=== PATIENT | male | born 1965 | race Caucasian/White ===

== ENCOUNTER 2019-06-03 08:18 | Day surgery (SDC) | payer OTHER, SELFPAY ==
[2019-06-03] VITALS (9 sets, daily range): BP systolic 105–193; BP diastolic 57–98; PULSE 57–93; RESP 10–18; TEMP 36.1–37.4; O2SAT 95–100; BMI 24.2
[2019-06-03] MEDS: SODIUM CHLORIDE 0.9% 1,000 ML 200 ML IV (08:42)
--- NOTE | 2019-06-03 09:09 | PM.HP.1 ---
History of Present Illness History of Present Illness Date Patient Seen: 06/03/19 Time Patient Seen: 09:17 Chief complaint: [id number] Narrative: Patient presents for colorectal screening. They have never had any previous examination for such. No personal or family history of colon cancer. On further history denies any recent gastrointestinal symptoms. No nausea, vomiting, abdominal pain, loss of appetite, unexplained weight loss, change in bowel habits, diarrhea, constipation, melena, hematochezia, or bright red blood per rectum. Patient History Medical History (Updated 06/03/19 @ 09:18 by Darren Townsend MD) Hypertension (Acute) Sleep apnea (Acute) Family & Social History Social History: household members spouse Meds Home Medications and Allergies Home Medications Medication Instructions Recorded Confirmed Type gabapentin 100 mg PO BEDTIME PRN 06/03/19 06/03/19 History ibuprofen 800 mg PO Q6H PRN 06/03/19 06/03/19 History lisinopril-hydrochlorothiazide 1 tab PO DAILY 06/03/19 06/03/19 History [Zestoretic] Allergies Allergy/AdvReac Type Severity Reaction Status Date / Time No Known Drug Allergies Allergy Verified 06/03/19 08:30 Review of Systems Review of Systems Narrative: A complete review of systems is negative except as noted in the HPI Exam Vital Signs (past 8 hours): - 06/03/19 08:34 Temperature 97.0 F L Pulse Rate 89 Respiratory Rate 18 Blood Pressure 193/98 H Pulse Oximetry 100 Oxygen Delivery Method Room Air Narrative Exam Narrative: General-no acute distress, well nourished HEENT-moist mucous membranes, no scleral icterus Neck-supple, no lymphadenopathy Chest- non labored respirations, clear to auscultation bilaterally Cardiac-regular rate no peripheral edema Abdomen-soft, nontender, non distended Extremities-warm, well perfused Neurological-alert and oriented, no focal deficits Assessment & Plan Assessment and plan (1) Screening for colon cancer: Current visit: Yes Status: Acute Assessment & Plan narrative: The patient requires colorectal screening and colonoscopy is recommended. Technical details were discussed. Risks, benefits, alternatives explained. Risks including but not limited to myocardial infarction, aspiration, bleeding, pain, missed lesion, incomplete examination, need for further radiographic studies, colonic perforation, and need for major abdominal surgery were discussed. All questions were answered to their satisfaction, and they are in agreement with this plan.
[2019-06-03] MEDS: MIDAZOLAM 5 MG/5 ML VIAL IV (09:14)
[2019-06-03] MEDS: fentaNYL 250 MCG/5 ML INJ IV (09:14)
--- NOTE | 2019-06-03 09:49 | PM.OP.ENDO ---
Operative Date/Time/Diagnoses Date of procedure: 06/03/19 Time of procedure: 09:49 Pre-op diagnosis: Screening colonoscopy Post-op diagnosis: same Procedure & Clinicians Study performed: Colonoscopy Same procedure as scheduled: Yes Indications: 54-year-old male no prior colonoscopy presents for routine screening. Surgeon: Darren Townsend Procedure Notes SCOAP/Timeout: Performed Procedure in detail: Patient placed in left lateral decubitus position. Time out was performed. Procedural sedation was administered with Versed and Fentanyl. A rectal exam demonstrated no external hemorrhoids no internal masses. Colonoscopy scope was placed into the rectum and advanced through the colon to the cecum. The ileocecal valve was identified. The scope was then slowly withdrawn examining colon thoroughly in all directions. The colonoscopy was notable for the following 1. Sigmoid diverticulosis 2. No masses or polyps 3. Quality of prep excellent Scope withdrawal time: 8 Sedation minutes: 27 Findings: diverticulosis Specimen(s): none sent Complications: none Impression: Diverticulosis Post-procedure Recommendations: Colonscopy in 10 years and High fiber diet Disposition: same day surgery
== END 2019-06-03 10:51 | disposition home or self-care (01) ==
PROVIDERS: PCP General Practice; Visit Provider Surgery
PROC: 0DJD8ZZ Inspection of Lower Intestinal Tract, Via Natural or Artificial Opening Endoscopic (ICD-10-PCS; CPT 45378; principal; 2019-06-03 09:30)
DX: Z12.11 Encounter for screening for malignant neoplasm of colon (principal); I10 Essential (primary) hypertension; G47.30 Sleep apnea, unspecified; K57.30 Diverticulosis of large intestine without perforation or abscess without bleeding
CPT/HCPCS: 45378; 99152; J2250; J3010

== ENCOUNTER → 2020-10-01 15:54 | Outpatient (CLI) | payer OTHER, SELFPAY ==
--- NOTE | 2020-10-01 | DI.MRI.S_ITS ---
PROCEDURE: MR LUMBAR SPINE WO CON INDICATIONS: LOW BACK PAIN TECHNIQUE: Noncontrast sagittal T1 spin echo and T2 fast echo, sagittal STIR, axial T1 and T2 fast spin echo through the lumbar spine. In cases with scoliosis, additional coronal T2 fast spin echo may be performed. COMPARISON: [facility], CR, XR LUMBAR SPINE 2 OR 3 VIEWS, 09/16/2020, 16:32. FINDINGS: Image quality: Excellent. Alignment and Curvature: There is mild L4-L5 anterolisthesis secondary to facet hypertrophy. Bones: There is transitional lumbosacral vertebral anatomy with sacralization of the L5 vertebral body. Reactive endplate changes noted adjacent to the L2-L3, L3-L4 and L4-L5 discs. No acute vertebral body compression fractures. Spinal Cord: Conus medullaris terminates at the L1 level. Visualized cord demonstrates normal signal and size. Paraspinous Soft Tissues: No paravertebral masses. T12-L1: Loss of disc signal. Mild, diffuse disc bulge. No central stenosis. No neural foraminal narrowing. No neural compression. L1-L2: Loss of disc signal. Mild, diffuse disc bulge. Mild narrowing of the central canal. Mild bilateral neural foraminal narrowing. No neural compression. L2-L3: Loss of disc signal. Mild to moderate diffuse disc bulge. Tiyr-ax-vwyngxpp bilateral facet hypertrophy. Mild ligamentum flavum hypertrophy. Moderate narrowing of the central canal. Moderate bilateral neural foraminal narrowing. No neural compression. L3-L4: Loss of disc signal and height. Mild, diffuse disc bulge. Moderate bilateral facet hypertrophy. Moderate narrowing of the central canal. Moderate bilateral neural foraminal narrowing. No neural compression. L4-L5: Loss of disc signal and height. Moderate, diffuse disc bulge. Severe bilateral facet hypertrophy. Severe narrowing of the central canal with compression of the nerve roots of the cauda equina. Mild right and severe left neural foraminal narrowing with compression of the exiting left L4 nerve root. L5-S1: Normal appearance. IMPRESSION: 1. 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 2. Multilevel degenerative disc disease. 3. Multilevel facet arthropathy. 4. Grade 1 L4-L5 degenerative spondylolisthesis. 5. Severe L4-L5 central canal narrowing with compression of the traversing nerve roots of the cauda equina. 6. Severe left L4-L5 neural foraminal narrowing with compression of the exiting left L4 nerve root. Dictated by: Betsy Castellon MD, PhD on 10/02/2020 at 10:18 Approved by: Betsy Castellon MD, PhD on 10/02/2020 at 11:04
== END ==
PROVIDERS: PCP General Practice; Referring Provider Orthopaedic Surgery Orthopaedic Surgery of the Spine; Visit Provider Orthopaedic Surgery Orthopaedic Surgery of the Spine
DX: M54.5 Low back pain (principal); M43.16 Spondylolisthesis, lumbar region; M51.36 Other intervertebral disc degeneration, lumbar region; M47.816 Spondylosis without myelopathy or radiculopathy, lumbar region; M48.061 Spinal stenosis, lumbar region without neurogenic claudication
CPT/HCPCS: 72148

== ENCOUNTER → 2020-10-21 13:37 | Outpatient (CLI) | payer OTHER, SELFPAY ==
[2020-10-21 14:03] LABS: Add Manual Diff / Slide Review NO; Basophils Absolute Auto 100 /uL (0-100); Eosinophils Absolute Auto 200 /uL (0-450); Eosinophils Percent Auto 2.2 % (2-4); Hematocrit 44.4 % (41-53); Hemoglobin 14.9 g/dL (13.5-17.5); Lymphocytes Absolute Auto 3700 /uL (1100-4500); Lymphocytes Percent Auto 37.1 % (25-40); Mean Corpuscular HGB Conc 33.6 % (30-36); Mean Corpuscular Hemoglobin 28.6 PG (26-34); Mean Corpuscular Volume 85.2 fL (80-100); Monocytes Absolute Auto 700 /uL (0-900); Monocytes Percent Auto 7.3 % (3-14); Neutrophils Absolute Auto 5200 /uL (1500-7000); Neutrophils Percent Auto 52.4 % (50-75); Platelet Count 275 X10^3/uL (150-400); Red Blood Cell Count 5.21 X10^6/uL (4.5-5.9); Red Cell Distribution Width 13.7 % (11.6-14.8)
[2020-10-21 14:18] LABS: BUN Creatinine Ratio 22.2 (6-22); Blood Urea Nitrogen 18 mg/dL (9-20); Calcium 10.2 mg/dL (8.4-10.2); Carbon Dioxide 31 mmol/L (22-32); Chloride 98 mmol/L (98-107); Estimated Glomerular Filt Rate > 60.0 mL/min (>60); Glucose 157 mg/dL (70-100); HEMOLYSIS < 15 (0-50); Potassium 4.2 mmol/L (3.4-5.1); Sodium 137 mmol/L (137-145)
== END ==
PROVIDERS: PCP General Practice; Referring Provider Orthopaedic Surgery Orthopaedic Surgery of the Spine; Visit Provider Orthopaedic Surgery Orthopaedic Surgery of the Spine
DX: Z01.818 Encounter for other preprocedural examination (principal); Z01.812 Encounter for preprocedural laboratory examination
CPT/HCPCS: 36415; 80048; 85025; 93005

== ENCOUNTER → 2020-11-09 09:44 | Outpatient (CLI) | payer OTHER, SELFPAY ==
[2020-11-09 11:05] LABS: COVID19 -Nasal RAPID Negative (Negative)
== END ==
PROVIDERS: PCP General Practice; Visit Provider Student in an Organized Health Care Education/Training Program
DX: Z01.812 Encounter for preprocedural laboratory examination (principal); Z20.822 Contact with and (suspected) exposure to COVID-19
CPT/HCPCS: 87635

== ENCOUNTER 2020-11-12 16:00 | Observation (INO) | payer OTHER, SELFPAY ==
[2020-11-04 13:03] VITALS: BMI 29.2
[2020-11-11] VITALS (21 sets, daily range): BP systolic 110–183; BP diastolic 57–92; PULSE 75–117; RESP 11–19; TEMP 36.6–37.8; O2SAT 93–98; BMI 29.2
--- NOTE | 2020-11-11 | DI.RAD.S_ITS ---
PROCEDURE: XR LUMBAR SPINE 2-3V INDICATIONS: L4-5 TLIF TECHNIQUE: 2 views of the lumbar spine were acquired. COMPARISON: [facility], MR, MR LUMBAR SPINE WO CON, 10/01/2020, 16:39. [facility], CR, L-SPINE 2-3 VIEWS, 01/18/2008, 8:34. FINDINGS: Spot fluoroscopic intraoperative images demonstrating lumbar spinal fixation hardware at L4-L5 with interbody cage graft. IMPRESSION: Expected alignment Dictated by: Ken Hernandez M.D. on 11/12/2020 at 9:25 Approved by: Ken Hernandez M.D. on 11/12/2020 at 9:28
[2020-11-11] MEDS: LACTATED RINGERS 1,000 ML 42 ML IV ×2 (12:57→16:06)
--- NOTE | 2020-11-11 13:45 | PM.PREOP ---
Pre-operative Note COVID-19 COVID-19 status: Negative Result date/Date tested (Pos, Neg/Pending): 11/09/20 Interval Note History & Physical reviewed/Exam performed by Physician: Yes Changes to H&P: No
[2020-11-11] MEDS: CEFAZOLIN 1 GM VIAL 2 GM IV ×2 (14:30→22:27)
--- NOTE | 2020-11-11 14:50 | SUR.OPER ---
Prone on spine table, head in foam head support, padded chest and pelvic supports, gel pad at knees, lower legs supported by pillows; nipples, genitalia and toes free of pressure, arms secured on foam padded arm boards at <90 degrees abduction. Tape over blanket at thigh secured to table.
[2020-11-11] MEDS: BUPIVACAINE 0.5% W/ EPI (PF) 30 ML VIAL INJ (15:01)
[2020-11-11] MEDS: BUPIVACAINE LIPOSOME 266 MG/20 ML VIAL INJ (15:01)
--- NOTE | 2020-11-11 17:37 | P.OP_ITS ---
Operative Date/Time/Diagnoses Date of procedure: 11/11/20 Time of procedure: 14:38 Pre-op diagnosis: 1. L4-5 spondylolisthesis 2. L4-5 spinal stenosis with neurogenic claudication Post-op diagnosis: same Procedure & Clinicians Procedure: 1. L4-5 Postero-lateral and posterior interbody fusion 2. L4-5 interbody cage placement. 3. L4-5 decompressive laminectomy with bilateral facetecomies 4. L4-5 Posterior non-segmental instrumentation 5. [place] of bone marrow from iliac crest 6. Utilization of microsurgical technique and operating microscope Same procedure as scheduled: Yes Indications: Patient has been having chronic back pain and worsening lumbar radiculopathy. Patient failed multiple conservative management with worsening pain weakness and numbness in her lower extremity. Patient has been having difficulty performing activity of daily living. After discussing risks benefits of treatment options, patient elected proceed with surgery. Surgeon: Genia Mahmood Mail Agent: Gavin Maguire Click Yes if Unassisted: No Anesthesia Type: General Operative Notes Closure Type: primary Specimen(s): none sent Prosthetic devices, grafts, tissues, transplants, or devices: Globus revolve, Rise cage Estimated Blood Loss (mL): 100 Blood products transfused: none Procedure in detail: Patient was seen in the preoperative area. Risks and benefits of the surgery was discussed with the patient. Informed consent was obtained from the patient and placed in the chart. Surgical site was marked. Patient was taken to the operative room. General anesthesia was administered. Prophylactic antibiotic was given to the patient less than 30 min before the incision was made. Patient was placed into a prone position on the Cruz table. Patient's back was then prepped and draped in the sterile fashion. Time- out was performed at this time. Using AP and lateral C-arm imaging the interval between L4-5 was identified and marked on patient's back. A 2 inch incision 2 in from midline was made on the right side first. The fascia was incised in line with skin incision. Globus MARS retractors was placed inside the incision and docked onto the L4 lamina. Using microsurgical technique and operating microscope, a L4 laminectomy and L4- 5 facetectomy was performed using a Kerrison rongeur. Patient was found have severe central and neural foraminal stenosis which was fully decompressed after the laminectomy and facetectomy was completed. The disc space at L4-5 was identified. And a total diskectomy was performed at L4-5 level. The endplates were decorticated using a rasp and shaver. The total diskectomy and decortication was performed at L4-5 level in order to to accomplish a L4-5 fusion. The local bone from the laminectomy and facetectomy was saved for local bone grafting. After the total diskectomy and decortication was completed, Trifecta bone graft material was combined with local bone that was harvested earlier. At this time, a separate skin is incision was made over the iliac crest. A Jamshidi needle was inserted into the iliac crest through a separate skin incision. 5 cc of bone marrow aspiration was obtained through the separate skin incision using a Jamshidi needle from the iliac crest. The bone marrow as piration was combined with local bone and the Trifecta bone grafting material. The bone grafting material was placed into the L4-5 interbody space along with a expandable cage. The cage was expanded to its maximum height using the torque limiting screwdriver. At this time a mirror image incision was made on the left side. The fascia was incised in line with the skin incision. Globus MARS retractor was inserted and docked onto the L4-5 posterolateral gutter. Using the power drill, posterior- lateral decortication was performed at L4-5 level until bleeding cortical bone was identified. The remaining bone grafting material was placed into the L4-5 posterior lateral gutter he order to accomplish posterolateral fusion at the L4- 5 level. Using the double C-arm technique, pedicle screws were placed into the L4-5 pedicles bilaterally. This was done by placing the Jamshidi needle into the pedicles, then placing the guidewires over the Jamshidi needle, and finally placing the cannulated screws over the guidewires bilaterally. After the pedicle screws were placed, 2 titanium rods was locked into the heads of the pedicle screws using locking caps and torque limiting screwdriver. Thready reducers was used to reduce the patient's spondylolisthesis and appropriate reduction and maintenance reduction was accomplished using the hardware placed. After all the hardware was placed, and confirmed with AP and lateral C-arm imaging, the wound was then irrigated with sterile normal saline and packed with Ray-Jonah gauze for 3 min to accomplish hemostasis. After the gauze was removed the deep fascia was closed with #1 Vicryl suture. The subcutaneous layer was closed with 2-0 Vicryl. The skin was closed with skin jcarlos. Patient tolerated the procedure well. There were no complications. Complications: none Post-operative Condition: stable Disposition: PACU Plan for aftercare: Admit to inpatient hospital
[2020-11-11] MEDS: HYDROMORPHONE 2 MG INJ IV ×4 (18:37→19:01)
--- NOTE | 2020-11-11 19:13 | SUR.PHASEI ---
Report called to Tennille Santiago RN
[2020-11-11] MEDS: OXYCODONE/ACETAMINOPHEN 5/325 TABLET 1 TAB PO (19:21)
--- NOTE | 2020-11-11 19:22 | SUR.PHASEI ---
Patient states that pain is a 'little bit' better.. Wants to stand to void once in his room, acknowledges that he feels like he'll be able to void in an upright position. Needs occasional reminder to deep breathe, sat primarily in high 90s. Skin warm and dry.
--- NOTE | 2020-11-11 19:55 | SUR.PHASEI ---
2nd liter of LR hung in the OR approx 1615 (not scanned). Unable to document 2nd liter in pacu after taking patient to the floor. 600 ml infused. hand-of to Tennille Santiago RN and SELECTOR PACKER. Pt was standing at the bedside with two person assist to void. Was able to void small, intermittent amounts. Pt desired to keep standing, stating I'm trying to relax so I can go. No questions from staff or patient. Dressing remains CDI, VVS.
--- NOTE | 2020-11-11 19:58 | SUR.PHASEI ---
Also recommended continuous pulse oximeter to ensure adequate oxygen monitoring. CPAP and clothing bag to the room with him, they plan to call RT
[2020-11-11] MEDS: SODIUM CHLORIDE 0.9% 1,000 ML 100 ML IV (20:15)
[2020-11-11] MEDS: SENNOSIDES 8.6 MG TABLET 17.2 MG PO (22:27)
[2020-11-11] MEDS: HYDROMORPHONE 0.5 MG INJ IV (22:27)
[2020-11-11] MEDS: DOCUSATE 100 MG CAPSULE PO (22:27)
[2020-11-12] MEDS: HYDROMORPHONE 0.5 MG INJ IV ×2 (00:41→03:42)
[2020-11-12 03:37] VITALS: BP 133/87; PULSE 92; RESP 18; TEMP 36.6; O2SAT 99
[2020-11-12] MEDS: CEFAZOLIN 1 GM VIAL 2 GM IV (06:39)
[2020-11-12 08:00] VITALS: BP 162/90; PULSE 95; RESP 17; TEMP 36.8; O2SAT 99
[2020-11-12] MEDS: OXYCODONE IR 5 MG TABLET 10 MG PO ×2 (08:08→11:12)
[2020-11-12] MEDS: hydrOXYzine pamoate 25 MG CAPSULE PO (08:08)
[2020-11-12] MEDS: hydroCHLOROthiazide 25 MG TABLET PO (08:09)
[2020-11-12] MEDS: AMLODIPINE 5 MG TABLET PO (08:09)
[2020-11-12] MEDS: lisinopriL 20 MG TABLET 40 MG PO (08:09)
[2020-11-12] MEDS: DOCUSATE 100 MG CAPSULE PO (08:09)
--- NOTE | 2020-11-12 09:16 | PT.IIE ---
Current Diagnoses Spondylolisthesis, lumbar region (11/11/20) Spinal stenosis, lumbar region with neurogenic claudication (11/11/20) Surgery Performed Operation Date: 11/11/20 14:00 Actual Procedures p L4-5 TLIF - Genia Mahmood MD Surgical History (Last Updated 11/04/20 @ 13:18 by Maria Guadalupe Damon, RN) History of bunionectomy of left great toe History of surgery Hx of appendectomy Hx of hernia repair Medical History (Last Updated 11/04/20 @ 13:17 by Maria Guadalupe Damon RN) Arthritis Discoloration of skin (~05/2020) Herniated disc, cervical Hypertension Sciatica Sleep apnea Spinal stenosis Spondylolisthesis Physical Therapy Inpatient Evaluation/Re-Eval M1 PT/OT-IP Prior Functional Status Start: 11/12/20 08:18 Freq: NEEDED Status: Active Protocol: Document 11/12/20 09:16 AW (Rec: 11/12/20 10:16 AW [id number]) Medical Review Prior Functional Status Medical History Reviewed Yes Communication WNL. Pt is an effective verbal communicator. Mobility and Gait Independent without AD Activities of Daily Living and IADL's Independent with all I/ADL's Social History Household Members spouse,children Living Arrangements House Number of Floors (Floors) One Floor Number of Stairs To Enter/Railing? 2 KATT no railing. Inside, there are two steps down to the living room without railing. 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 He lives with his and two daughters, (14 yo and 25 yo). His will be home multimedia educational specialist for one week after discharge and able to provide assist. M2 PT-IP Current Condition Start: 11/12/20 08:18 Freq: NEEDED Status: Active Protocol: Document 11/12/20 09:16 AW (Rec: 11/12/20 10:16 AW [id number]) Physical Therapy Current Condition Current Condition Evaluation Date 11/12/20 Treatment Diagnosis L4-5 TLIF; difficulty in walking Onset Date 11/11/20 Precautions Lumbar Precautions Log Roll,No Twisting,Limit Bending,Lifting Restriction of 10 lbs,Gait Belt above Incisional Area M3 PT-IP Subjective Start: 11/12/20 08:18 Freq: NEEDED Status: Active Protocol: Document 11/12/20 09:16 AW (Rec: 11/12/20 10:16 AW [id number]) Subjective Physical Therapy Visit Type Type Initial Evaluation Visit Start Time 08:52 Visit Stop Time 09:16 Total Visit Minutes 24 Notes Pt's spouse was present throughout this encounter Physical Therapy Visit Comments Patient Comments Pt reports suprapubic pain with movement, is hesitant to move, but ultimately willing to get up. Patient Goals Return home with spouse support. Therapy Pain Assessment Pain When Pain Assessed At Rest Pain Present Pain Present Pain Reported Location Back Intensity 3 Scale Used unchanged with mobility Pain Management Techniques Re-positioning,Timing of Activity with Medications M4 PT-IP Mobility and Gait Start: 11/12/20 08:18 Freq: NEEDED Status: Active Protocol: Document 11/12/20 09:16 AW (Rec: 11/12/20 10:16 AW [id number]) PT-Bed Mobility Assessment Rolling Type of Rolling Log Rolling,Roll to Left Level of Assist Minimal Assistance Supine to Sit Supine to Sit Minimal Assistance Scooting Scooting to Edge of Bed Standby Assistance PT-Transfer Assessment Sit to and From Stand Sit to and from Stand Minimal Assistance,1 Person Assistance,Use of Upper Extremities Equipment Transfer Assistive Device Gait Belt,Front Wheeled Walker Orthotic/Prosthetic Devices or Brace: No Transfers Transfer Destination Chair Transfer Technique Stand Step Pivot Transfer Ability Level of Assist Contact Guard Assistance,Use of Upper Extremities Comments Mobility Comments Pt was sitting up in the chair as PT arrived. BP 155/85 HR 97. After education on back precautions and log roll, pt completed log roll to his left side and transitioned SL to sit min A x 1. He denied lightheadedness. With min assist, he stood from the bed and used FWW to steady himself and take small marching steps at bedside. He then ambulated cautiosly 10 feet in the room with FWW CGA before transferring to the bedside chair CGA and cues for hand placement to limit twisting. Pt was positioned on the chair with call light and tray table in reach. His spouse remained in the room. Gait Assessment Gait Gait Assistance Required: Contact Guard Assist Distance (Feet) 10 Able to Maintain Weight Bearing Status Yes During Gait Assistive Devices Assistive Device Gait Belt,Front Wheeled Walker Orthotic/Prosthetic Devices or Brace: No Gait Deviations General Gait Pattern Antalgic,Decreased Stride Length,Decreased Feet Clearance Factors Limiting Gait Function Factors Limiting Gait Function Decreased Activity Tolerance, Decreased Strength,Limited Range of Motion,Pain Comments Gait Comments Gait speed was exceedingly slow and required CGA with FWW . Stair Climbing Assessment Comments Stair Climbing Comments Not assessed. PT-Balance Assessment Sitting Balance and Reactions Static Sitting Balance Ability Good Dynamic Sitting Balance Ability Good Standing Balance and Reactions Static Standing Balance Ability Good Dynamic Standing Balance Ability Fair Device Used FWW M5 PT-IP Objective Assessments Start: 11/12/20 08:18 Freq: NEEDED Status: Active Protocol: Document 11/12/20 09:16 AW (Rec: 11/12/20 10:16 AW [id number]) Orientation Orientation/Cognition Level of Alertness Alert Orientation Name,Day of Week,Place, Situation Language Function Ability No Deficits Noted Safety Awareness Understands Safety Issues Memory Description No Deficits Noted Gross Range of Motion Lower Extremity ROM Assessment Within Functional Limits Strength Lower Extremity Strength Assessment Bilaterally Impaired Hip 3+/5 in supine Knee 4+/5 Ankle 4+/5 Sensation Assessment Sensation Gross Sensation WNL M6 PT-IP Treatment Start: 11/12/20 08:18 Freq: NEEDED Status: Active Protocol: Document 11/12/20 09:16 AW (Rec: 11/12/20 10:16 AW [id number]) Physical Therapy Treatment Education Education Provided Precautions,Weight Bearing Status,Post-Op Packet,Safety Other Treatments Other Treatment Performed Educated pt on PT plan of care , post op precautions, and importance of early post op mobility. M7 PT-IP Assessment and Plan Start: 11/12/20 08:18 Freq: NEEDED Status: Active Protocol: Document 11/12/20 09:16 AW (Rec: 11/12/20 10:16 AW [id number]) PT Summary Assessment and Plan Potential Rehabilitation Potential Good Status of Condition at Evaluation Evolving Summary Impairments Pain,ROM,Strength,Bed Mobility ,Transfers,Gait,Activity Tolerance Assessment Summary Lenin is a 55 yo man seen for PT evaluation on POD1 following L4-5 TLIF. He is independent in all regards at baseline and lives with his supportive spouse and daughters. He required CGA to min assist for limited mobility on evaluation. Pt reported suprapubic pain at rest and was hesitant to move throughout this meeting. Pt's will be available at PM session to participate in caregiver training. PT anticipates pt will be safe to discharge home with spouse assist and outpatient PT once medically stable. Will need to conduct stair training prior to discharge. Goals Bed Mobility Goal Standby Assistance Transfer Goal Standby Assistance,Front Wheeled Walker Gait Goal Standby Assistance,Front Wheel Walker Gait Distance 150 Other Goals - up/down 2 steps with no rail CGA/RETAIL SALES ADVISOR Days to Meet Goals 3 Frequency of Treatment Frequency Of Treatment Twice a Day Treatment Plan Physical Therapy Treatment Plan Bed Mobility Training,Transfer Training,Gait Training, Therapeutic Exercise,Balance Retraining,Post Op Education, Discharge Planning,Hot or Cold Pack,Neuromuscular Re-ed, Coordination Retraining,Manual Therapy Precautions Lumbar Precautions Log Roll,No Twisting,Limit Bending,Lifting Restriction of 10 lbs,Gait Belt above Incisional Area Recommendations To Nursing Amount of Assist Needed 1 Person Assist Discharge Recommendations PT Discharge Recommendations Home with Assistance, Outpatient PT Transportation Needs at Discharge Private Vehicle
[2020-11-12 10:54] VITALS: O2SAT 97
[2020-11-12] MEDS: ACETAMINOPHEN 325 MG TABLET 650 MG PO (11:11)
[2020-11-12 12:48] VITALS: BP 122/70; PULSE 85; RESP 16; TEMP 36.6; O2SAT 99
--- NOTE | 2020-11-12 14:09 | CM.IDA ---
Initial DCP Assessment Note Pt is a 55 yo male, resident of [place], now POD#[address] surgery by Dr Mahmood PCP: Payer: Sherlyn Lindsey Reviewed chart, pt discussed in multidisciplinary rounds this morning. Therapy has cleared pt for return home w/family to assist and pt has planned for home. Patient eager to return home; supportive spouse at bedside, she has planned to take time off to care for patient in his first week of recovery. Patient and spouse have two dtrs, 14 and 25 yo also available to assist. No needs expected from DC planning team although will remain available in case this changes before DC. OZZY Farley Discharge Planning/Care Management CM Discharge Assessment Start: 11/12/20 14:08 Freq: Status: Active Protocol: Document 11/12/20 14:08 MAR (Rec: 11/12/20 14:09 MAR [id number]) Discharge Planning Assessment Assigned Tissue Packer OZZY Briceno DPOA/Assigned Designee Name Lorraine Hook, spouse Contact Information [phone] Advance Directives? No History Provided By Patient Prior Living Arrangements House Household Members spouse,children Type of transporation used prior to Drives own vehicle admit Independent with ADL's Yes Is patient alert and oriented? Yes Barriers to Discharge No Comment Home Discharge Plan Home Transportation Arrangement Family Referrals Initiated None needed Additional Comment At this time
--- NOTE | 2020-11-12 14:21 | PT.IPTN ---
Current Diagnoses Spondylolisthesis, lumbar region (11/12/20) Spinal stenosis, lumbar region with neurogenic claudication (11/12/20) Surgery Performed Operation Date: 11/11/20 14:00 Actual Procedures p L4-5 TLIF - Genia Mahmood MD Physical Therapy Treatment Note M2 PT-IP Current Condition Start: 11/12/20 08:18 Freq: NEEDED Status: Active Protocol: Document 11/12/20 09:16 AW (Rec: 11/12/20 10:16 AW [id number]) Physical Therapy Current Condition Current Condition Evaluation Date 11/12/20 Treatment Diagnosis L4-5 TLIF; difficulty in walking Onset Date 11/11/20 Precautions Lumbar Precautions Log Roll,No Twisting,Limit Bending,Lifting Restriction of 10 lbs,Gait Belt above Incisional Area M3 PT-IP Subjective Start: 11/12/20 08:18 Freq: NEEDED Status: Active Protocol: Document 11/12/20 16:03 AW (Rec: 11/12/20 16:15 AW [id number]) Subjective Physical Therapy Visit Type Type Treatment Note Visit Start Time 13:56 Visit Stop Time 14:21 Total Visit Minutes 25 Notes Pt's spouse was present throughout this encounter and participated in caregiver training. Number of PAN DEVULCANIZER HELPER Visits 0 Physical Therapy Visit Comments Patient Comments Pt has been looking forward to working with PT Therapy Pain Assessment Pain When Pain Assessed At Rest Pain Present Pain Present Pain Reported Location Back Intensity 2 Scale Used unchanged with mobility Pain Management Techniques Re-positioning,Timing of Activity with Medications M4 PT-IP Mobility and Gait Start: 11/12/20 08:18 Freq: NEEDED Status: Active Protocol: Document 11/12/20 16:03 AW (Rec: 11/12/20 16:15 AW [id number]) PT-Transfer Assessment Sit to and From Stand Sit to and from Stand Standby Assistance,1 Person Assistance,Use of Upper Extremities Equipment Transfer Assistive Device Gait Belt,Front Wheeled Walker Orthotic/Prosthetic Devices or Brace: No Transfers Transfer Destination Chair Transfer Technique Stand Step Pivot Transfer Ability Level of Assist Standby Assistance,Use of Upper Extremities Comments Mobility Comments Pt was sitting up in the chair as PT arrived. He completed sit to stand SBA and with good attention to precautions. He ambulated with FWW SBA 80 feet to the stairs and 80 feet back to the room. Gait speed was very slow (0.1 m/s) but steady with no LOB. On return to the room, pt's provided SBA and appropriate cues. Gait Assessment Gait Gait Assistance Required: Standby Assistance Distance (Feet) 80 Able to Maintain Weight Bearing Status Yes During Gait Assistive Devices Assistive Device Gait Belt,Front Wheeled Walker Orthotic/Prosthetic Devices or Brace: No Gait Deviations General Gait Pattern Antalgic,Decreased Stride Length,Decreased Feet Clearance Factors Limiting Gait Function Factors Limiting Gait Function Decreased Activity Tolerance, Decreased Strength,Limited Range of Motion,Pain Comments Gait Comments See mobility comments for details. Stair Climbing Assessment Evaluation Level of Assist On Stairs Contact Guard Assistance, Minimal Assistance,1 Person Assistance Devices Stair Climbing Assistive Devices None,Left Railing,Right Railing Technique/Endurance Stair Climbing Direction Ascend and Descend Stair Climbing Technique Step to Step Number of Steps Climbed 3 Stair Climbing Set # Repetitions (reps) 3 Comments Stair Climbing Comments Pt reported feeling stronger in his right leg so was instructed in step-to patterning for stairs. First set was completed with B rails . Second set was done with unilateral rail. On third set, pt was assisted with AFTER SCHOOL COORDINATOR on the right side provided by his . They were able to navigate stairs safely. PT-Balance Assessment Sitting Balance and Reactions Static Sitting Balance Ability Good Dynamic Sitting Balance Ability Good Standing Balance and Reactions Static Standing Balance Ability Good Dynamic Standing Balance Ability Good Device Used FWW M5 PT-IP Objective Assessments Start: 11/12/20 08:18 Freq: NEEDED Status: Active Protocol: Document 11/12/20 09:16 AW (Rec: 11/12/20 10:16 AW [id number]) Orientation Orientation/Cognition Level of Alertness Alert Orientation Name,Day of Week,Place, Situation Language Function Ability No Deficits Noted Safety Awareness Understands Safety Issues Memory Description No Deficits Noted Gross Range of Motion Lower Extremity ROM Assessment Within Functional Limits Strength Lower Extremity Strength Assessment Bilaterally Impaired Hip 3+/5 in supine Knee 4+/5 Ankle 4+/5 Sensation Assessment Sensation Gross Sensation WNL M6 PT-IP Treatment Start: 11/12/20 08:18 Freq: NEEDED Status: Active Protocol: Document 11/12/20 16:03 AW (Rec: 11/12/20 16:15 AW [id number]) Physical Therapy Treatment Education Education Provided Precautions,Safety Other Treatments Other Treatment Performed Pt's was educated on back precautions, and providing mobility assist. M7 PT-IP Assessment and Plan Start: 11/12/20 08:18 Freq: NEEDED Status: Active Protocol: Document 11/12/20 16:03 AW (Rec: 11/12/20 16:15 AW [id number]) PT Summary Assessment and Plan Summary Impairments Pain,ROM,Strength,Bed Mobility ,Transfers,Gait,Activity Tolerance Progress Towards Goals Progressing Toward Goals Assessment Summary Lenin was able to progress his gait this session and his participated in caregiver training, including stairs. Pt continues to walk very slowly (0.1 m/s) and is hesitant to change speed when prompted. In spite of slow speed, pt was steady and safe with FWW SBA. Pt will be safe to discharge home with his assisting once medically cleared. Goals Bed Mobility Goal Standby Assistance Transfer Goal Standby Assistance,Front Wheeled Walker Gait Goal Standby Assistance,Front Wheel Walker Gait Distance 150 Other Goals - up/down 2 steps with no rail CGA/AFTER SCHOOL COORDINATOR Days to Meet Goals 3 Frequency of Treatment Frequency Of Treatment Twice a Day Treatment Plan Physical Therapy Treatment Plan Bed Mobility Training,Transfer Training,Gait Training, Therapeutic Exercise,Balance Retraining,Post Op Education, Discharge Planning,Hot or Cold Pack,Neuromuscular Re-ed, Coordination Retraining,Manual Therapy Precautions Lumbar Precautions Log Roll,No Twisting,Limit Bending,Lifting Restriction of 10 lbs,Gait Belt above Incisional Area Recommendations To Nursing Amount of Assist Needed 1 Person Assist Discharge Recommendations PT Discharge Recommendations Home with Assistance, Outpatient PT Transportation Needs at Discharge Private Vehicle
--- NOTE | 2020-11-12 14:54 | OT.IP.EVAL ---
Current Diagnoses Spondylolisthesis, lumbar region (11/12/20) Spinal stenosis, lumbar region with neurogenic claudication (11/12/20) Surgery Performed Operation Date: 11/11/20 14:00 Actual Procedures p L4-5 TLIF - Genia Mahmood MD Past Medical History (Last Reviewed 11/12/20 @ 16:24 by Moe Patten PA-C) Arthritis Discoloration of skin (~05/2020) Herniated disc, cervical Hypertension Sciatica Sleep apnea Spinal stenosis Spondylolisthesis Surgical History (Last Reviewed 11/12/20 @ 16:24 by Moe Patten PA-C) History of bunionectomy of left great toe History of surgery Hx of appendectomy Hx of hernia repair Occupational Therapy Inpatient Evaluation/Re-Eval M1 PT/OT-IP Prior Functional Status Start: 11/12/20 08:18 Freq: NEEDED Status: Active Protocol: Document 11/12/20 14:30 [facility] (Rec: 11/12/20 16:49 [facility] [id number]) Medical Review Prior Functional Status Medical History Reviewed Yes Communication WNL. Pt is an effective verbal communicator. Mobility and Gait Independent without AD Activities of Daily Living and IADL's Independent with all I/ADL's, pt having more difficulty with lifting at work. Social History Household Members spouse,children Living Arrangements House Number of Floors (Floors) One Floor Number of Stairs To Enter/Railing? 2 KATT no railing. Inside, there are two steps down to the living room without railing. 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 He lives with his and two daughters, (14 yo and 25 yo). His will be home manager multimedia for one week after discharge and able to provide assist. M2 OT-IP Current Condition Start: 11/12/20 16:31 Freq: Status: Active Protocol: Document 11/12/20 14:30 [facility] (Rec: 11/12/20 16:49 [facility] [id number]) Occupational Therapy Current Condition Current Condition Evaluation Date 11/12/20 Treatment Diagnosis S/p L4-5 TLIF Diagnosis Onset Date 11/11/20 Post Operative Precautions Lumbar Precautions Log Roll,No Twisting,Limit Bending,Lifting Restriction of 10 lbs,Gait Belt above Incisional Area M3 OT- IP Subjective and Pain Start: 11/12/20 16:31 Freq: Status: Active Protocol: Document 11/12/20 14:30 [facility] (Rec: 11/12/20 16:49 [facility] [id number]) OT- Subjective Occupational Therapy Visit Type Type Initial Evaluation Visit Start Time 14:30 Visit Stop Time 14:54 Total Visit Minutes 24 Occupational Therapy Visit Comments Patient Comments Pt agreed to get up and work with Ot. Pt states the hospital bed seems to be just putting air on his back, nursing notified. Nursing also states that his back dressing needs to be changed. Patient/Caregiver Goals TO go home. OT Pain Assessment Pain When Pain Assessed During Mobility Pain Present Pain Present Pain Reported Location Back Intensity 5 Scale Used Numeric (0 - 10) M4 OT- IP ADL's Start: 11/12/20 16:31 Freq: Status: Active Protocol: Document 11/12/20 14:30 [facility] (Rec: 11/12/20 16:49 [facility] [id number]) OT [id number] Comments OT Self-Feeding Comments Not at meal time. OT ADL-Grooming Comments OT Grooming Comments Pt refused. OT ADL-Oral Care Comments Oral Care Comments Suggested pt to spit into cup to best follow his back precautions. OT ADL-Dressing General Eval Lower Body Dressing Ability Maximum Assistance Comments OT Dressing Comments Able to show, issue LB dressing equipment to pt so able to increase ease for LB dressing needs. Pt's states that they can assist pt for needs as well. OT ADL-Toileting Comments OT Toileting Comments Pt able to simulate reaching back to be able to wipe for pericare needs while standing with good safety. OT ADL-Bathing Comments OT Bathing Comments Pt states to shower at home. Suggested pt to get a shower chair, otherwise pt thinking about use of FWW in the shower . Informed pt to be careful of water in the FWW and can be a fall hazard. M5 OT- IP IADL's Start: 11/12/20 16:31 Freq: Status: Active Protocol: Document 11/12/20 14:30 [facility] (Rec: 11/12/20 16:49 [facility] [id number]) OT-Instrumental Activities of Daily Living Home Safety Awareness Awareness of Need for Assistance at Home Good Awareness Ability to Problem Solve Emergency Able to Problem Solve Situations Home Safety Comments Pt a little groggy and has a supportive family to assist for all his needs. M6 OT- IP Functional Cognition Start: 11/12/20 16:31 Freq: Status: Active Protocol: Document 11/12/20 14:30 [facility] (Rec: 11/12/20 16:49 [facility] [id number]) Cognitive Factors Limiting Selfcare Function Cognitive Ability Level of Alertness Alert Patient Orientation Name,Age,Birthday,Month,Date, Year,Day of Week,Place, Situation Attention Span Ability Capable of Focused Attention, Capable of Sustained Attention Ability to Follow Commands Able to Follow One Step Commands Safety Awareness Underestimates Need for Assistance Cognitive Comments Cognitive Assessment Comments Pt states groggy from medications and is aware to provide assist and supervision as needed. Pt needing reminders for back precautions. OT- Vision and Hearing OT- Hearing Assessment OT- Hearing Assessment WFL M7 OT- IP Mobility and Balance Start: 11/12/20 16:31 Freq: Status: Active Protocol: Document 11/12/20 14:30 [facility] (Rec: 11/12/20 16:49 [facility] [id number]) OT- Bed Mobility Assessment Rolling Type of Rolling Roll to Right Level of Assistance Standby Assistance Supine to Sit Supine to Sit Assist Contact Guard Assistance OT-Transfer Assessment Sit to and From Stand Sit to and from Stand Standby Assistance Transfers Transfer Ability Standby Assistance Technique Transfer Destination Bed,Chair Devices Transfer Assistive Devices Gait Belt,Front Wheeled Walker Comments Mobility Comments Pt able to do log rolling and CGA from side-lying to sitting. Pt states may sleep in the recliner initially at home. SBA to stand and use of FWW to get to the recliner. Pt not wanting to do anymore at this time due to his pain. OT- Balance Assessment Sitting Balance and Reactions Static Sitting Balance Ability Normal Dynamic Sitting Balance Ability Good Standing Balance and Reactions Static Standing Balance Ability Good M8 OT- IP Objective Assessments Start: 11/12/20 16:31 Freq: Status: Active Protocol: Document 11/12/20 14:30 [facility] (Rec: 11/12/20 16:49 [facility] [id number]) OT-Muscle Tone Assessment Muscle Tone WNL Yes M9 OT- IP Assessment and Plan Start: 11/12/20 16:31 Freq: Status: Active Protocol: Document 11/12/20 14:30 [facility] (Rec: 11/12/20 16:49 [facility] [id number]) OT Summary Assessment and Plan Potential Rehabilitation Potential Excellent Analytic Complexity at Evaluation Low Summary OT Impairments Pain,Functional Mobility, Grooming,Dressing,Toileting, Bathing,Toilet Transfers, Shower Transfers Progress Towards Goals Progressing Toward Goals Assessment Summary Pt low complexity and main barriers are steps and a little groggy and needing reminder of his back precautions. Pt has a supportive to be able to assist her for all needs of ADl's and functional mobility. Pt looking to go home when medically stable. Suggested pt get a shower chair and LB dressing equipment issued to pt. Goals Dressing Goal Independent Toileting Goal Independent Bathing Goal Independent Toilet Transfer Goal Independent Shower Transfer Goal Independent Days to Meet Goals 5 Frequency of Treatment Frequency Of Treatment Once a Day Treatment Plan OT Treatment Plan ADL Training,Functional Cognition Training,Functional Mobility,Patient/Family Education,Discharge Planning Other Treatment Recommendations and Next shower if still here Treatment Focus Discharge Recommendations OT Discharge Recommendations Home with Assistance Home Equipment Needs shower chair Transportation Needs at Discharge Private Vehicle
--- NOTE | 2020-11-12 15:48 | PC.NURSE ---
Pain: Pt transitioned to oral oxycodone. Pt reports po pain med was effective able to work with PT. Needs some verbal cues to follow his lami precautions. Denies any further concerns.
[2020-11-12 16:22] VITALS: BP 164/79; PULSE 81; RESP 19; TEMP 37.2; O2SAT 96
--- NOTE | 2020-11-12 16:22 | P.DS_ITS ---
History of Present Illness History of Present Illness Date Patient Seen: 11/12/20 Time Patient Seen: 16:23 Chief complaint: OPB Narrative: Patient's pain is 2 to 3/10. Denies fever or chills. No nausea or vomiting. Patient has assistance at home. Discharge Providers Provider Discharge Date: 11/12/20 Consults: 11/11/20 20:11 Consult to Occupational Therapy Evaluate & Treat Comment: Physician Instructions: Evaluate and treat Consult to Physical Therapy Evaluate & Treat Comment: Physician Instructions: Evaluate and Treat Discharge provider: Moe Patten PA-C Summary Hospital Course Discharge Diagnosis: 1. L4-5 spondylolisthesis 2. L4-5 spinal stenosis with neurogenic claudication Hospital Course: 1. L4-5 Postero-lateral and posterior interbody fusion 2. L4-5 interbody cage placement. 3. L4-5 decompressive laminectomy with bilateral facetecomies 4. L4-5 Posterior non-segmental instrumentation 5. [place] of bone marrow from iliac crest 6. Utilization of microsurgical technique and operating microscope Same procedure as scheduled: Yes Indications: Patient has been having chronic back pain and worsening lumbar radiculopathy. Patient failed multiple conservative management with worsening pain weakness and numbness in her lower extremity. Patient has been having difficulty performing activity of daily living. After discussing risks benefits of treatment options, patient elected proceed with surgery. Surgeon: Genia Mahmood Cool Roofing Installer: Gavin Maguire Click Yes if Unassisted: No Anesthesia Type: General Operative Notes Closure Type: primary Specimen(s): none sent Prosthetic devices, grafts, tissues, transplants, or devices: Globus revolve, Rise cage Estimated Blood Loss (mL): 100 Blood products transfused: none Patient admitted to the hospital for the above-mentioned procedure. Patient consented to the same. Patient taken operating room underwent lumbar fusion. Patient back in his room recovering well as in stable condition. Status at Discharge Cognitive/behavioral status at discharge: at baseline, oriented Functional status at discharge: uses cane/walker Overall status at discharge: patient is progressing back to baseline Time Spent with Patient Time spent: Less than 30 minutes Exam Vital Signs (past 8 hours): - 11/12/20 10:54 11/12/20 12:48 Temperature 97.8 F Pulse Rate 85 Respiratory Rate 16 Blood Pressure 122/70 Pulse Oximetry 97 99 Oxygen Delivery Method Room Air Oxygen Flow Rate 0 Narrative Exam Narrative: Pleasant 55-year-old male resting comfortably in bed in no apparent distress. Sensation grossly intact to light touch bilateral lower extremities. Motor functions intact bilateral lower extremities. The dressing shows scant drainage. Otherwise intact. [facility] Medical History Arthritis Discoloration of skin (~05/2020) Herniated disc, cervical Hypertension Sciatica Sleep apnea Spinal stenosis Spondylolisthesis Surgical History History of bunionectomy of left great toe History of surgery Hx of appendectomy Hx of hernia repair Social History household members: spouse and children Smoking Status: Never smoker alcohol intake: current Discharge Assessment & Plan Assessment and Plan Assessment: Patient progressing as expected status post L4-L5 fusion. Plan of Treatment: Discharge home in stable condition. Discharge Plan Discharge orders & Medications Discharge Orders: Discharge (Order); Ordered 11/12/20 Ordered By: Moe Patten Prescriptions: New acetaminophen 325 mg Tablet 650 mg PO Q6HR PRN (Reason: Pain, Mild (1-3)) Qty: 60 RF: 0 docusate sodium [DOK] 100 mg Capsule 100 mg PO BID Qty: 10 RF: 0 oxycodone 5 mg Tablet 10 mg PO Q3HR PRN (Reason: Pain, Severe (7-10)) Qty: 40 RF: 0 polyethylene glycol 3350 [Miralax] 17 gram/dose powder 17 g PO BID Qty: 119 RF: 1 Continued amlodipine 5 mg Tablet 5 mg PO DAILY RF: 0 hydrochlorothiazide 25 mg Tablet 25 mg PO DAILY RF: 0 lisinopril 40 mg Tablet 40 mg PO DAILY RF: 0 ibuprofen 200 mg Tablet 800 mg PO Q6H PRN (Reason: Pain (Scale Score 1-3)) RF: 0 Follow up/Referrals: Genia Mahmood MD [Physician] - (Two weeks) Diet/Activity/Treatments Diet: Diet as Tolerated Activity: Limit bending, twisting, lifting Cold/Heat Therapy: Apply ice to low back as needed Skin/Wound/Dressing Care Report to your healthcare provider any signs of infection, such as:: chills, fever, increased pain, unusual drainage and unusual redness Dressing: Keep dressing clean and dry Visit Report/Discharge Packet Instructions: DI for Transforaminal Lumbar Interbody Fusion Stand Alone Forms: Surgery Discharge Discharge Data Attending Provider: Genia Mahmood
[2020-11-12 18:00] VITALS: TEMP 36.9
== END 2020-11-12 18:55 | disposition home or self-care (01) ==
LOC: OR 16:23 → AC 16:23
PROVIDERS: Admitting Provider Orthopaedic Surgery Orthopaedic Surgery of the Spine; Referring Provider Orthopaedic Surgery Orthopaedic Surgery of the Spine; Visit Provider Orthopaedic Surgery Orthopaedic Surgery of the Spine
PROC: (CPT 22633; principal; 2020-11-11 14:00)
DX: M43.16 Spondylolisthesis, lumbar region (principal); M48.062 Spinal stenosis, lumbar region with neurogenic claudication; I10 Essential (primary) hypertension
CPT/HCPCS: 22633; 22853; 22840; 20939; 63047; 72100; 76000; 97116; 97161; 97165; 97530; 97535; C1776; G0378; C9290; J0330; J0690; J1100; J1170; J2405; J2704; J3010

== ENCOUNTER → 2022-04-18 09:17 | Outpatient (CLI) | payer OTHER, SELFPAY ==
[2020-11-11 20:23] VITALS: BMI 29.2
--- NOTE | 2022-04-18 | DI.MRI.S_ITS ---
PROCEDURE: MR LUMBAR SPINE WO CON INDICATIONS: LUMBAR STENOSIS WITH NEUROGENIC CLAUDICATION TECHNIQUE: Noncontrast sagittal T1 spin echo and T2 fast echo, sagittal STIR, and T2 fast spin echo through the lumbar spine. In cases with scoliosis, additional coronal T2 fast spin echo may be performed. COMPARISON: [facility], MR, MR LUMBAR SPINE WO CON, 10/01/2020, 16:39. [facility], CR, XR LUMBAR SPINE 2 OR 3 VIEWS, 04/05/2022, 14:53. FINDINGS: Image quality: Excellent. Alignment and Curvature: Transitional element at L5 is present, as before. Numbering system is as denoted on the montage panel. Roughly 3 mm of retrolisthesis of L1 on L2. 2 mm of retrolisthesis of L2 on L3 and L3 on L4. Bone Marrow: Marrow is of normal overall signal. No acute vertebral body compression fractures. Patient is status post posterior fusion at L4-L5, new since the prior examination. There is mild reactive signal throughout the endplates of the lumbar and lower thoracic spine. Spinal Cord: Conus medullaris terminates at the lower L1 level. Visualized cord demonstrates normal signal and size. Paraspinous Soft Tissues: No paravertebral masses. T12-L1: Moderate disc height loss. Mild disc desiccation. Mild facet and ligamentum flavum hypertrophy. Mild canal stenosis. No foraminal stenosis. No significant change. L1-L2: Moderate disc desiccation. Mild disc height loss and diffuse disc bulge. Mild facet and ligamentum flavum hypertrophy. Mild epidural lipomatosis. Mild canal stenosis. Mild left greater than right foraminal stenosis. No significant change. L2-L3: Moderate disc desiccation. Mild disc height loss and diffuse disc bulge. Mild facet and ligamentum flavum hypertrophy. Mild epidural lipomatosis. Mild canal stenosis. Mild bilateral foraminal stenosis. No significant change. L3-L4: Moderate disc height loss and desiccation. Mild diffuse disc bulge. Mild facet and ligamentum flavum hypertrophy. Mild epidural lipomatosis. Mild canal stenosis. Moderate right and mild left foraminal stenosis. No significant change. L4-L5: Status post fusion. Interbody device placement. Moderate disc height loss. Mild diffuse disc bulge. Moderate bilateral facet hypertrophy. Decreased, mild canal stenosis. Decreased, moderate bilateral foraminal stenosis. L5-S1: Moderate disc height loss. Moderate bilateral facet hypertrophy. Mild canal stenosis. Mild bilateral foraminal stenosis. No significant change. IMPRESSION: 1. Multilevel degenerative disc and facet disease, as well as ligamentum flavum hypertrophy and epidural lipomatosis. 2. Postsurgical sequelae. 3. Multilevel mild canal stenoses. 4. Multilevel foraminal stenoses, worst at L3-L4 and L4-L5 where there are moderate foraminal stenoses. Dictated by: Fede Moore M.D. on 04/18/2022 at 12:27 Transcribed by: VIVIENNE on 04/18/2022 at 12:31 Approved by: Fede Moore M.D. on 04/18/2022 at 16:53
== END ==
PROVIDERS: PCP Physician Assistant; Referring Provider Orthopaedic Surgery Orthopaedic Surgery of the Spine; Visit Provider Orthopaedic Surgery Orthopaedic Surgery of the Spine
DX: M48.062 Spinal stenosis, lumbar region with neurogenic claudication (principal); M51.36 Other intervertebral disc degeneration, lumbar region
CPT/HCPCS: 72148

== ENCOUNTER 2023-04-17 18:43 | Emergency (ER) | payer OTHER, SELFPAY ==
[2020-11-11 20:23] VITALS: BMI 29.2
[2023-04-17] VITALS (8 sets, daily range): BP systolic 172–217; BP diastolic 91–98; PULSE 89–101; RESP 18; TEMP 37.3; O2SAT 96–99; BMI 31.9
--- NOTE | 2023-04-17 19:12 | ED.ABDPAIN ---
HPI - Abdominal Pain General Chief Complaint: Abdominal Pain Stated Complaint: left side/back pain x2 weeks Time Seen by Provider: 04/17/23 18:55 Source: patient Mode of arrival: Ambulatory History of Present Illness HPI narrative: Patient 57-year-old male history of hypertension noncompliant with medication presenting today with left flank pain. It has been on going for 2 weeks. He was seen and evaluated 04/04/2023 at [facility] I have received those records. He was having some urinary frequency he had a CT scan did not show any nephrolithiasis he did not have any UTI but did have some hematuria blood pressure at that time was noted to be 160/80 ultimately nothing was found to explain the patient's back pain. He seen and evaluated today at walk-in clinic for same complaints however was sent here due to elevated blood pressure and ongoing left flank pain. He denies any chest pain or shortness of breath no fever or chills. He continues to have some urinary frequency and hematuria. Related Data Home Medications Medication Instructions Recorded Confirmed hydrochlorothiazide 25 mg tablet 25 mg PO DAILY 11/04/20 04/17/23 lisinopril 40 mg tablet 40 mg PO DAILY 11/04/20 04/17/23 Allergies Allergy/AdvReac Type Severity Reaction Status Date / Time No Known Drug Allergies Allergy Verified 04/17/23 18:19 Review of Systems Review of Systems ROS Unobtainable: All systems reviewed & are unremarkable except as noted in HPI and below Patient History Medical History Discoloration of skin (~05/2020) Herniated disc, cervical Spondylolisthesis Spinal stenosis Arthritis Sciatica Hypertension Sleep apnea Surgical History History of surgery History of bunionectomy of left great toe Hx of appendectomy Hx of hernia repair Social History household members: spouse and children Smoking Status: Never smoker alcohol intake: current Smoking Status: Never smoker alcohol intake frequency: holidays/special occasions only Substance Use Type: does not use Exam Initial Vital Signs Initial Vital Signs: Vital Signs Temperature 99.1 F 04/17/23 18:58 Pulse Rate 101 H 04/17/23 18:58 Respiratory Rate 18 04/17/23 18:58 Blood Pressure 217/98 H 04/17/23 18:58 Pulse Oximetry 97 04/17/23 18:58 Oxygen Delivery Method Room Air 04/17/23 18:58 GENERAL: Alert pleasant 57-year-old male and in no acute distress. HEENT: Head atraumatic,EOMI, pupils reactive, face symmetric, moist mucous membranes CARDIOVASCULAR: Regular rate and rhythm without murmurs, rubs or gallops. RESPIRATORY: Breath sounds equal bilaterally, no wheezes rales or rhonchi. ABDOMEN: Soft, nontender. Normoactive bowel sounds all 4 quadrants. No guarding or rebound. : Mild left CVA tenderness EXTREMITIES: Normal range of motion, no clubbing or edema. Neurovascularly intact NEUROLOGICAL: Alert and oriented x4.Normal gait and speech. SKIN: Warm, dry, no laceration, no petechiae, no rashes or lesions. Course Orders Ordered: ED Orders 04/17/23 19:00 Complete Blood Count AUTO DIFF Stat Comprehensive Metabolic Panel Stat Lipase Stat Troponin & CK Cardiac Panel Stat Urine Microscopic Stat 04/17/23 20:04 CT angio chest abdomen pelvis Stat Discontinued Medications Ondansetron HCl (Ondansetron 4 Mg Odt) 4 mg PO NOW PRN PRN Reason: Nausea And Vomiting Ondansetron HCl (Ondansetron 4 Mg/2 Ml Inj) 4 mg IV NOW PRN PRN Reason: Nausea And Vomiting Vital Signs Vital signs: Vital Signs - 8 hr 04/17/23 18:58 04/17/23 20:00 04/17/23 20:00 Temperature 99.1 F Pulse Rate 101 H 96 H Respiratory Rate 18 18 Blood Pressure 217/98 H 202/98 H Pulse Oximetry 97 98 Oxygen Delivery Method Room Air 04/17/23 20:40 04/17/23 20:42 04/17/23 20:42 Temperature Pulse Rate 99 H 93 H Respiratory Rate 18 Blood Pressure 194/91 H Pulse Oximetry 99 97 Oxygen Delivery Method 04/17/23 21:00 04/17/23 21:16 04/17/23 21:16 Temperature Pulse Rate 92 H 91 H Respiratory Rate Blood Pressure 172/92 H 172/92 H Pulse Oximetry 96 97 Oxygen Delivery Method 04/17/23 21:17 04/17/23 21:30 04/17/23 21:30 Temperature Pulse Rate 89 91 H Respiratory Rate Blood Pressure 172/92 H 183/95 H Pulse Oximetry 97 98 Oxygen Delivery Method Room Air MDM - Abdominal Pain Lab Data 04/17/23 19:00 04/17/23 19:00 Labs: Lab Results 04/17/23 Range/Units 19:00 WBC 14.0 H (4.5-11.0) X10^3/uL RBC 5.26 (4.5-5.9) X10^6/uL Hgb 15.1 (13.5-17.5) g/dL Hct 44.8 (41-53) % MCV 85.1 (80-100) fL MCH 28.8 (26-34) PG MCHC 33.8 (30-36) % RDW 13.5 (11.6-14.8) % Plt Count 321 (150-400) X10^3/uL Neut % (Auto) 64.1 (50-75) % Lymph % (Auto) 25.7 (25-40) % [place] % (Auto) 8.3 (3-14) % Eos % (Auto) 1.1 L (2-4) % Baso % (Auto) 0.8 (0-2) % Neut # (Auto) 9000 H (2493-9387) /uL Lymph # (Auto) 3600 (9484-6461) /uL [place] # (Auto) 1200 H (0-900) /uL Eos # (Auto) 200 (0-450) /uL Baso # (Auto) 100 (0-100) /uL Sodium 135 L (137-145) mmol/L Potassium 3.5 (3.4-5.1) mmol/L Chloride 99 (98-107) mmol/L Carbon Dioxide 28 (22-32) mmol/L BUN 15 (9-20) mg/dL Creatinine 0.78 (0.66-1.25) mg/dL Estimated GFR > 60 (>60) mL/min BUN/Creatinine Ratio 19.2 (6-22) Glucose 107 H (70-100) mg/dL Calcium 9.8 (8.4-10.2) mg/dL Total Bilirubin 0.4 (0.2-1.3) mg/dL AST 41 (17-59) IU/L ALT 34 (<50) IU/L Alkaline Phosphatase 75 (38-126) U/L Total Creatine Kinase 355 H (55-170) U/L Troponin I < 0.012 (0.01-0.034) ng/mL Total Protein 8.5 H (6.3-8.2) g/dL Albumin 4.6 (3.5-5.0) g/dL Globulin 3.9 (1.7-4.1) g/dL Albumin/Globulin Ratio 1.2 (1.0-2.8) Lipase 55 (23-300) U/L Urine RBC 0-1/hpf (0-5/HPF) Urine WBC 0-1/hpf (0-5/HPF) Ur Squamous Epith Cells 0-1 /hpf (0-5/HPF) Urine Bacteria None seen (None) Imaging Data CT scan - abdomen/pelvis: Radiologist's Impression: PROCEDURE: CT ANGIO CHEST ABDOMEN PELVIS INDICATIONS: left flank pain HTN TECHNIQUE: Precontrast 5 mm thick sections acquired from the lung apices to the iliac crests. After the administration of intravenous contrast, 2.5 mm thick sections again acquired from the lung apices to the iliac crests. Maximum intensity projection (MIP) oblique sagittal and coronal reformats were then acquired. For radiation dose reduction, the following was used: automated exposure control. COMPARISON: None. FINDINGS: Image quality: Excellent. AORTA: Aorta is normal in caliber. No dissection. Mild atherosclerotic calcification. CHEST: Lungs and pleura: No acute airspace opacities. No pleural effusions or pneumothorax. Central and peripheral airways are patent and normal in caliber. There are lung nodules. -6 mm; right middle lobe; series 6, image 167. -3 mm; right middle lobe; series 6, image 173. Mediastinum: Heart size is normal. No pericardial effusion. No mediastinal or hilar adenopathy by size criteria. Central pulmonary arteries are normal in size. Esophagus is normal in caliber. Small hiatal hernias. Bones and chest wall: No axillary adenopathy by size criteria. Thyroid gland is grossly normal. No suspicious bony lesions. No vertebral body compression fractures. ABDOMEN: Vasculature: Celiac trunk and mesenteric arteries are patent. Renal arteries are also patent. Solid organs: Liver is normal in size and enhancement. Moderate hepatic steatosis. Gallbladder is unremarkable . Biliary system is non dilated. Pancreas enhances normally. Spleen is normal in size and enhancement. There is a 1.2 cm left adrenal adenoma. Both kidneys are normal in size and enhancement, without hydronephrosis. Peritoneum and bowel: No free fluid or air. Bowel loops are normal in caliber and wall thickness. Mild diverticulosis. No acute diverticulitis. Rectum may be thickened although the appearance could be caused by artifact. Nodes and vessels: No retroperitoneal or mesenteric adenopathy by size criteria. Inferior vena cava is normal in morphology. Miscellaneous: No ventral hernias. PELVIS: Genitourinary: Bladder wall thickness is normal. Miscellaneous: No inguinal hernias or adenopathy. No ventral hernias. Bones: No suspicious bony lesions. No vertebral body compression fractures. Discectomy, right hemilaminectomy and posterior fusion at L4-L5. Moderate degenerative disc and facet disease in lumbar spine causing moderate central canal stenosis at L2-L3 and L3-L4. IMPRESSION: 1. Mild atherosclerotic calcification aorta. No aneurysm or dissection. 2. A cause for left flank pain is not identified. 3. Mild diverticulosis. No diverticulitis. 4. Moderate hepatic steatosis. 5. A 1.2 cm left adrenal adenoma. 6. Degenerative and postsurgical changes in lumbar spine. 7. There are 2 lung nodules in right middle lobe. Please see enclosed follow-up recommendation. Fleischner Society criteria for SOLID lung nodule followup. Nodule size (mm)Low-risk patientHigh-risk patient?4No follow-up neededFollow-up at 12 mo; if no change, no further follow-up>1-1Hjahod-yl CT at 12 mo; if no change, no further follow-up needed.Initial follow-up CT at 6-12 mo, then 18-24 mo if no change. >6-8Initial follow-up CT at 6-12 mo, then 18-24 mo if no change. Initial follow-up CT at 3-6 mo, then 9-12 mo and 24 mo if no change. >8Follow-up CT at 3, 9, 24 mo. Or PET and/or biopsy.Same as for low-risk pts. Dictated by: Kennedy Howell M.D. on 04/17/2023 at 20:53 ECG Data Interpretation: Normal sinus rhythm rate 70 NC interval 174 QRS 90 QTC 408 Q-wave noted in lead [address] depression AVF lead 3 possibly lead to no ST elevation similar to previous EKG in 2020 MDM Narrative Medical decision making narrative: Patient 57-year-old male presents today with ongoing left flank pain. He is noncompliant with blood pressure medication noted to be very hypertensive. Pain is not really radiating he is had some hematuria he had a CT done a couple weeks ago but pain has persisted. Concern for dissection with hypertension. CT angio done did not show any cause of left flank pain and no dissection or aneurysm noted. He has no evidence of a UTI urinalysis on it clinic earlier. Blood work is overall reassuring mild leukocytosis of 14 without left shift or cause of infection, no anemia or KARIE. Possibly musculoskeletal pain. Encourage patient to check blood pressure being compliant with medication. Patient's blood pressure has come down without any intervention. He is no evidence of end-organ damage. Discussed with him need to take medication and monitor blood pressure. At this time suspect the patient's pain is musculoskeletal. Other causes have been ruled out. 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 He is offered something else for pain however he reports Tylenol Motrin help when he is not looking or needing anything else. No cauda equina symptoms Discharge Plan Departure Patient Disposition: Home Clinical Impression: Low back pain Instructions: Blood in Urine, DI for Low Back Pain Activity Restrictions/Additional Instructions: *You have been diagnosed with back pain *What to do: At this time no cause of back pain is identified. Blood work is reassuring no kidney stone or bladder infection. Recommend trying heating pad Also please check your blood pressure once daily and record it. Please take all blood pressure medications as needed. Persistently high blood pressure can put you at risk for stroke and heart attack. Please see your doctor or Urology in regards to microscopic blood in urine *Continue to take medications as directed Motrin 600 mg every 6 hours needed for [id number] Tylenol 650 mg every 6 hours if needed for [id number] pain *Follow up with your primary care provider in 2-3 days or call [phone] *Return to ER if you should have increasing pain numbness tingling weakness [or] any new, worsening or concerning symptoms Prescriptions: No Action hydrochlorothiazide 25 mg Tablet 25 mg PO DAILY lisinopril 40 mg Tablet 40 mg PO DAILY Referrals: Greg Alvarez PA-C [Primary Care Provider] - Stand Alone Forms: Patient Portal/API
[2023-04-17 19:26] LABS: Add Manual Diff / Slide Review NO; Basophils Absolute Auto 100 /uL (0-100); Basophils Percent Auto 0.8 % (0-2); Eosinophils Absolute Auto 200 /uL (0-450); Eosinophils Percent Auto 1.1 % (2-4); Hematocrit 44.8 % (41-53); Hemoglobin 15.1 g/dL (13.5-17.5); Lymphocytes Absolute Auto 3600 /uL (1100-4500); Lymphocytes Percent Auto 25.7 % (25-40); Mean Corpuscular HGB Conc 33.8 % (30-36); Mean Corpuscular Hemoglobin 28.8 PG (26-34); Mean Corpuscular Volume 85.1 fL (80-100); Monocytes Absolute Auto 1200 /uL (0-900); Monocytes Percent Auto 8.3 % (3-14); Neutrophils Absolute Auto 9000 /uL (1500-7000); Neutrophils Percent Auto 64.1 % (50-75); Platelet Count 321 X10^3/uL (150-400); Red Blood Cell Count 5.26 X10^6/uL (4.5-5.9); Red Cell Distribution Width 13.5 % (11.6-14.8)
[2023-04-17 19:31] LABS: Alanine Aminotransferase 34 IU/L (<50); Albumin 4.6 g/dL (3.5-5.0); Albumin Globulin Ratio 1.2 (1.0-2.8); Alkaline Phosphatase 75 U/L (38-126); Aspartate Aminotransferase 41 IU/L (17-59); BUN Creatinine Ratio 19.2 (6-22); Bilirubin Total 0.4 mg/dL (0.2-1.3); Blood Urea Nitrogen 15 mg/dL (9-20); Calcium 9.8 mg/dL (8.4-10.2); Carbon Dioxide 28 mmol/L (22-32); Chloride 99 mmol/L (98-107); Estimated Glomerular Filt Rate > 60 mL/min (>60); Globulin 3.9 g/dL (1.7-4.1); Glucose 107 mg/dL (70-100); Lipase 55 U/L (23-300); Potassium 3.5 mmol/L (3.4-5.1); Sodium 135 mmol/L (137-145); Total Protein 8.5 g/dL (6.3-8.2)
[2023-04-17 19:32] LABS: HEMOLYSIS 51 (0-50)
--- NOTE | 2023-04-17 20:04 | DI.CT.S_ITS ---
PROCEDURE: CT ANGIO CHEST ABDOMEN PELVIS INDICATIONS: left flank pain HTN TECHNIQUE: Precontrast 5 mm thick sections acquired from the lung apices to the iliac crests. After the administration of intravenous contrast, 2.5 mm thick sections again acquired from the lung apices to the iliac crests. Maximum intensity projection (MIP) oblique sagittal and coronal reformats were then acquired. For radiation dose reduction, the following was used: automated exposure control. COMPARISON: None. FINDINGS: Image quality: Excellent. AORTA: Aorta is normal in caliber. No dissection. Mild atherosclerotic calcification. CHEST: Lungs and pleura: No acute airspace opacities. No pleural effusions or pneumothorax. Central and peripheral airways are patent and normal in caliber. There are lung nodules. -6 mm; right middle lobe; series 6, image 167. -3 mm; right middle lobe; series 6, image 173. Mediastinum: Heart size is normal. No pericardial effusion. No mediastinal or hilar adenopathy by size criteria. Central pulmonary arteries are normal in size. Esophagus is normal in caliber. Small hiatal hernias. Bones and chest wall: No axillary adenopathy by size criteria. Thyroid gland is grossly normal. No suspicious bony lesions. No vertebral body compression fractures. ABDOMEN: Vasculature: Celiac trunk and mesenteric arteries are patent. Renal arteries are also patent. Solid organs: Liver is normal in size and enhancement. Moderate hepatic steatosis. Gallbladder is unremarkable . Biliary system is non dilated. Pancreas enhances normally. Spleen is normal in size and enhancement. There is a 1.2 cm left adrenal adenoma. Both kidneys are normal in size and enhancement, without hydronephrosis. Peritoneum and bowel: No free fluid or air. Bowel loops are normal in caliber and wall thickness. Mild diverticulosis. No acute diverticulitis. Rectum may be thickened although the appearance could be caused by artifact. Nodes and vessels: No retroperitoneal or mesenteric adenopathy by size criteria. Inferior vena cava is normal in morphology. Miscellaneous: No ventral hernias. PELVIS: Genitourinary: Bladder wall thickness is normal. Miscellaneous: No inguinal hernias or adenopathy. No ventral hernias. Bones: No suspicious bony lesions. No vertebral body compression fractures. Discectomy, right hemilaminectomy and posterior fusion at L4-L5. Moderate degenerative disc and facet disease in lumbar spine causing moderate central canal stenosis at L2-L3 and L3-L4. IMPRESSION: 1. Mild atherosclerotic calcification aorta. No aneurysm or dissection. 2. A cause for left flank pain is not identified. 3. Mild diverticulosis. No diverticulitis. 4. Moderate hepatic steatosis. 5. A 1.2 cm left adrenal adenoma. 6. Degenerative and postsurgical changes in lumbar spine. 7. There are 2 lung nodules in right middle lobe. Please see enclosed follow-up recommendation. Fleischner Society criteria for SOLID lung nodule followup. Nodule size (mm)Low-risk patientHigh-risk patient?4No follow-up neededFollow-up at 12 mo; if no change, no further follow-up>8-4Msheoc-tx CT at 12 mo; if no change, no further follow-up needed.Initial follow-up CT at 6-12 mo, then 18-24 mo if no change. >6-8Initial follow-up CT at 6-12 mo, then 18-24 mo if no change. Initial follow-up CT at 3-6 mo, then 9-12 mo and 24 mo if no change. >8Follow-up CT at 3, 9, 24 mo. Or PET and/or biopsy.Same as for low-risk pts. Dictated by: Kennedy Howell M.D. on 04/17/2023 at 20:53 Approved by: Kennedy Howell M.D. on 04/17/2023 at 21:05
[2023-04-17 20:15] LABS: Bacteria Urine None Seen; Creatine Kinase 355 U/L (55-170); RBC Urine 0-1/HPF (0-5/HPF); Squamous Epithelial Cell Urine 0-1 /HPF (0-5/HPF); WBC Urine 0-1/HPF (0-5/HPF)
[2023-04-17 20:27] LABS: Troponin I < 0.012 ng/mL (0.01-0.034)
== END 2023-04-17 22:01 | disposition home or self-care (01) ==
PROVIDERS: Emergency Provider Emergency Medicine; PCP Physician Assistant
DX: M54.50 Low back pain, unspecified (principal); R35.0 Frequency of micturition; R31.9 Hematuria, unspecified; R07.9 Chest pain, unspecified
CPT/HCPCS: 36415; 51798; 71275; 74174; 80053; 81015; 82550; 83690; 84484; 85025; 93005; 99284; Q9967

== ENCOUNTER → 2023-08-28 10:44 | Outpatient (CLI) | payer OTHER, SELFPAY ==
[2020-11-11 20:23] VITALS: BMI 29.2
--- NOTE | 2023-08-28 10:45 | DI.CT.S_ITS ---
PROCEDURE: CT ABDOMEN PELVIS WO/W CON INDICATIONS: Asymptomatic microscopic hematuria, history of tobacco use TECHNIQUE: Optional 5 mm thick noncontrast images acquired from the diaphragm to the symphysis pubis. After the administration of intravenous contrast, 5 mm thick images acquired from the diaphragm to the symphysis pubis after a 10-minute delay. 2 mm thick coronal and sagittal reformats were then performed of the kidneys and ureters. For radiation dose reduction, the following was used: automated exposure control, adjustment of mA and/or kV according to patient size. COMPARISON: None. FINDINGS: Image quality: Diagnostic. Kidneys and Ureters: Both kidneys are normal in size, without hydronephrosis or nephrolithiasis. No perinephric fat stranding. There is normal bilateral renal enhancement. Renal calyces appear normal in morphology when filled with contrast. Opacified portions of both ureters demonstrate normal caliber Bladder: Bladder wall thickness is normal. No calcified bladder stones. OTHER: Lower chest: Unremarkable. Liver: No solid mass. Gallbladder: No radiopaque gallstones or wall thickening. Biliary ducts: No biliary dilation. Pancreas: No ductal dilation. Spleen: Size is within normal limits. Adrenal Glands: Benign left adrenal adenoma by Hounsfield units criteria; no imaging follow-up per consensus guidelines. Stomach and Bowel: Normal colonic caliber, without significant wall thickening. Colonic diverticulosis without evidence of diverticulitis. Fecal debris within the small bowel. Peritoneum: No abnormal intraperitoneal fluid. No free air. Ventral Wall: No hernia. Abdominal Nodes: No retroperitoneal or mesenteric adenopathy by size criteria. Vessels: Aorta and inferior vena cava are normal in size. PELVIS: Pelvic Organs: Unremarkable. Pelvic Nodes: No enlarged lymph nodes. Miscellaneous: No inguinal hernias are seen. Bones: No aggressive osseous abnormality. Ankylosis of the sacroiliac joints. Posterior surgical fusion of the lower lumbar spine. Degenerative disc disease. IMPRESSION: No nephrolithiasis or filling defects within the opacified renal collecting system or ureters. Colonic diverticulosis without evidence of diverticulitis. Fecal debris within the small-bowel, usually indicating small intestinal bacterial overgrowth versus slow transit. Dictated by: Chaparro Krueger M.D. on 08/28/2023 at 12:07 Approved by: Chaparro Krueger M.D. on 08/28/2023 at 12:16
== END ==
LOC: CT 10:44
PROVIDERS: Referring Provider Urology; Visit Provider Urology
DX: K57.90 Diverticulosis of intestine, part unspecified, without perforation or abscess without bleeding (principal); R31.21 Asymptomatic microscopic hematuria; D35.02 Benign neoplasm of left adrenal gland; M43.28 Fusion of spine, sacral and sacrococcygeal region; Z98.1 Arthrodesis status; Z87.891 Personal history of nicotine dependence
CPT/HCPCS: 74178; Q9967